=== PATIENT | female | born 1960 | race Caucasian/White ===

== ENCOUNTER → 2021-09-29 | Outpatient (CLI) | payer MEDICARE, OTHER ==
[~2021-09-29] MED LIST: AMITRIPTYLINE H75 MG PO; ASPIRIN EC81 MG PO; LINZESS290 MCG PO; LISINOPRIL5 MG PO; METFORMIN HCL500 MG PO; OMEPRAZOLE40 MG PO; PROAIR HFA8.5 GM INH; SPIRIVA RESPIMAT4 GM INH; TOUJEO MAX300 UNIT/1 SQ; ZOCOR10 MG PO
== END ==
LOC: CT 10:06
DX: Z01.818 Encounter for other preprocedural examination (principal); I65.21 Occlusion and stenosis of right carotid artery
CPT/HCPCS: 36415; 70498; 82565; Q9967